=== PATIENT | male | born 1995 | race Caucasian/White ===

== ENCOUNTER 2025-02-27 17:38 | Emergency (ER) | payer MEDICAID ==
[~2025-02-27] VITALS: Ht 182.9 cm; Wt 74.0 kg
[2025-02-27 17:50] VITALS: TEMP 36.9; O2SAT 100
[2025-02-27 20:19] LABS: BASOPHILS % 0.4 % (0.0-2.0); EOSINOPHILS % 0.7 % (0.0-5.0); HEMATOCRIT. 47.1 % (42.0-52.0); HEMOGLOBIN. 16.1 g/dL (14.0-18.0); LYMPHOCYTES % 34.6 % (20.0-50.0); MEAN CORPUSCULAR HEMOGLOBIN 29.1 pg (28.0-32.0); MEAN CORPUSCULAR HGB CONC 34.1 g/dL (31.0-37.0); MEAN CORPUSCULAR VOLUME 85.4 fL (80.0-94.0); MEAN PLATELET VOLUME 8.7 fl (7.4-10.4); MONOCYTES % 6.8 % (2.0-8.0); NEUTROPHILS % 57.5 % (40.0-76.0); PLATELET 254 x1000/uL (130-400); RED BLOOD CELL COUNT 5.52 mill/uL (4.7-6.1); RED CELL DISTRIBUTION WIDTH 13.6 % (11.6-14.6); WHITE BLOOD COUNT 9.1 x1000/uL (4.5-11.0)
[2025-02-27 20:26] LABS: CHLORIDE 109 mEq/L (98-107); POTASSIUM 3.6 mEq/L (3.5-5.1); SODIUM 143 mEq/L (136-145)
[2025-02-27 20:27] LABS: CARBON DIOXIDE 20 mEq/L (21-32)
[2025-02-27 20:28] LABS: CALCIUM 10.2 mg/dL (8.7-10.4)
[2025-02-27 20:32] LABS: CREATININE 0.9 mg/dL (0.6-1.3); GLUCOSE 92 mg/dL (70-105); UREA NITROGEN BLOOD 6 mg/dL (9-23)
[2025-02-27 20:33] LABS: TROPONIN I HIGH SENSITIVITY < 4 ng/L (3.0-53)
[2025-02-27] MEDS: KETOROLAC 15MG/ML VIAL IM ONE (22:32)
[2025-02-27 23:09] LABS: ETHANOL BLOOD < 10 mg/dL (<10)
[2025-02-27 23:11] LABS: TROPONIN I HIGH SENSITIVITY < 4 ng/L (3.0-53)
[2025-02-28 00:41] VITALS: BP 132/72; PULSE 96; RESP 12; O2SAT 99
== END 2025-02-28 00:45 | disposition home or self-care (01) ==
LOC: ER 17:38
DX: R07.89 Other chest pain (principal); R06.02 Shortness of breath; R00.2 Palpitations; E87.8 Other disorders of electrolyte and fluid balance, not elsewhere classified; I10 Essential (primary) hypertension; F41.9 Anxiety disorder, unspecified
CPT/HCPCS: 80048; 80320; 85025; 85379; 84484; 36415; 71045; 93005; 96372; 99285; J1885; G0480